=== PATIENT | female | born 1955 | race Caucasian/White ===

== ENCOUNTER → 2018-01-28 | Outpatient (CLI) | payer MEDICARE ==
--- NOTE | 2018-01-28 12:42 | US ---
EXAMINATION TYPE: US thyroid st tissue head/neck DATE OF EXAM: 01/28/2018 COMPARISON: US CLINICAL HISTORY: E04.1 NODULE. GLAND SIZE: Right Lobe: 4.1 x 1.1 x 1.1 cm Overall Parenchyma: heterogenous Left Lobe: 2.9 x 1.0 x 0.8 cm Overall Parenchyma: homogeneous Isthmus Thickness: 0.2 cm NODULES RIGHT: # of nodules measured on right: 2 1. 0.5 X 0.5 x 0.3 cm hypoechoic mixed nodule at the mid pole with poorly defined margins. This no dule is wider than tall and shows intranodular vascularity. Prior size: none seen 2. 0.3 X 0.2 x 0.2 cm in hypoechoic posterior lobe portion cystic nodule at the lower pole with poor ly defined margins. This nodule is wider as is tall and shows no intranodular vascularity. Prior size: 1.0 x 0.6 x 0.5 cm LEFT: # of nodules measured on left: 0 ISTHMUS: # of nodules measured in the isthmus: 0 Bilateral neck scanned, no evidence of lymphadenopathy. IMPRESSION: The previously seen 1.0 cm right thyroid nodule appears smaller on today's examination. An additional new 5 mm right nodule is seen. Recommendation is surveillance for the subcentimeter thyroid nodules.
== END | disposition home or self-care (01) ==
LOC: RADUSWWP 09:02
PROVIDERS: ATTEND Family Medicine
DX: E04.2 Nontoxic multinodular goiter (principal); Z88.1 Allergy status to other antibiotic agents
CPT/HCPCS: 76536